=== PATIENT | male | born 1960 | race Caucasian/White ===

== ENCOUNTER 2017-01-20 12:56 | Emergency (ER) | payer MEDICAID, OTHER ==
[~2017-01-20 12:56] MED LIST: ALBUTEROL SULF8.5 G1 IH; AMLODIPINE BESY10 MG PO; ASPIR 8181 MG PO; CEFOTAXIME IV; COLACE100 MG PO; CONSTULOSE10 G/15 ML PO; FOLIC ACID1 MG PO; FUROSEMIDE40 MG PO; LISINOPRIL10 MG PO; MULTIVITAMIN W/1 T PO; OMEPRAZOLE20 MG PO; POTASSIUM CHLO10 MEQ PO; SERTRALINE HCL100 M1 PO; SPIRIVA18 MCG IH; SPIRONOLACTONE25 M1 PO; SULINDAC200 M1 PO; THIAMINE HCL100 MG PO; TRAZODONE HCL100 MG PO; ULTRAM50 MG PO; VANCOMYCIN1 GM/VIA1 IV; [UNRECOGNIZED DRUG - OTHER] IV
[2017-01-20] MEDS ORDERED: NORVASC10 M2 PO (13:17)
[2017-01-20] MEDS ORDERED: COLACE100 M1 PO (13:18)
[2017-01-20] MEDS ORDERED: FERROUS SULFAT324 MG PO (13:18)
[2017-01-20] MEDS ORDERED: ASPIRIN EC81 MG PO (13:18)
[2017-01-20] MEDS ORDERED: TENORMIN50 M1 PO (13:18)
[2017-01-20] MEDS ORDERED: LASIX40 M1 PO (13:19)
[2017-01-20] MEDS ORDERED: MOBIC15 M2 PO (13:19)
[2017-01-20] MEDS ORDERED: MEGESTROL ACETA40 M1 PO (13:19)
[2017-01-20] MEDS ORDERED: ZOLOFT100 M1 PO (13:20)
[2017-01-20] MEDS ORDERED: OMEPRAZOLE20 M3 PO (13:20)
[2017-01-20] MEDS ORDERED: VITAMIN AND MI1 EACH PO (13:20)
[2017-01-20] MEDS ORDERED: SPIRIVA18 MC1 INH (13:21)
[2017-01-20] MEDS ORDERED: FLOMAX0.4 M1 PO (13:21)
[2017-01-20] MEDS ORDERED: ALDACTONE25 M1 PO (13:21)
[2017-01-20 13:43] LABS: BASO % 0.3 % (0-2); EOS % 0.5 % (0-7); HCT-HEMATOCRIT 29.2 % (36.0-53.5); HGB-HEMOGLOBIN 9.8 gm/dl (13.5-17.0); IMMATURE GRANULOCYTES ABSOLUTE 0.01 tho/cmm (0-0.03); IMMATURE GRANULOCYTES PERCENT 0.2 % (0-0.3); LYMPH % 22.1 % (20-45); LYMPH ABSOLUTE COUNT 1.3 tho/cmm (0.8-4.5); MCH (MEAN CORPUSCULAR HGB) 34.9 pg (28.0-32.0); MCHC MEAN CORPUSCULAR HGB CONC 33.6 % (32.0-36.0); MCV (MEAN CELL VOLUME) 103.9 fl (82.0-96.0); MONO % 5.6 % (0-12); MONOCYTE ABSOLUTE COUNT 0.3 tho/cmm (0.0-1.2); NEUTROPHIL ABSOLUTE COUNT 4.1 tho/cmm (1.6-8.0); NEUTROPHIL-AUTOMATED 4.1 tho/cmm (1.6-8.0); NEUTROPHILS % 71.3 % (40-80); PLATELET COUNT 72 tho/cmm (150-450); RED BLOOD COUNT 2.81 mil/cmm (4.40-5.70); RED CELL DISTRIBUTION WIDTH 17.2 % (12.4-16.4); WHITE BLOOD COUNT 5.7 tho/cmm (4.0-10.0)
[2017-01-20 13:52] LABS: INR 1.2 INR (0.9-1.1); PROTHROMBIN TIME 13.6 SECONDS (9.0-13.6)
[2017-01-20 13:55] LABS: ALB/GLOB RATIO 0.5 (0.8-2.0); ALBUMIN 2.1 g/dl (3.5-5.0); ALKALINE PHOSPHATASE 134 U/L (33-138); ALT/SGPT 36 U/L (12-78); ANION GAP 13 mmol/L (0-20); AST/SGOT 53 U/L (10-40); BILIRUBIN,TOTAL 1.1 mg/dl (0.0-1.5); BLOOD UREA NITROGEN 20 mg/dl (6-24); CALCIUM 7.9 mg/dl (8.5-10.5); CARBON DIOXIDE-VENOUS 20 mmol/L (22-32); CHLORIDE 114 mmol/l (96-110); CREATININE 1.66 mg/dl (0.60-1.30); GLUCOSE 125 mg/dL (70-110); POTASSIUM 3.3 mmol/L (3.7-5.1); SODIUM 144 mmol/L (135-145); eGFR VALUE FOR BLACK 52 mL/Min
[2017-01-20] MEDS ORDERED: OSTEO BI-FLEX1 EAC5 PO (14:24)
[2017-01-20] MEDS ORDERED: XARELTO15 M1 PO (15:48)
[2017-01-20] MEDS ORDERED: LOVENOX80 MG/0.1 SC (16:33)
[2017-01-20] MEDS ORDERED: COUMADIN5 M2 PO (16:33)
== END 2017-01-20 16:59 ==
LOC: EDMED 12:56
PROVIDERS: Nurse Practitioner Family
DX: I82.4Z2 Acute embolism and thrombosis of unspecified deep veins of left distal lower extremity (principal); I12.9 Hypertensive chronic kidney disease with stage 1 through stage 4 chronic kidney disease, or unspecified chronic kidney disease; N18.9 Chronic kidney disease, unspecified; Z85.05 Personal history of malignant neoplasm of liver; Z85.118 Personal history of other malignant neoplasm of bronchus and lung; Z88.5 Allergy status to narcotic agent; Z79.82 Long term (current) use of aspirin; Z79.899 Other long term (current) drug therapy
CPT/HCPCS: J1650; J7030; Q9967